=== PATIENT | female | born 1930 | race Caucasian/White ===

== ENCOUNTER 2017-12-14 14:52 | Emergency (ER) | payer BC, SELFPAY ==
[~2017-12-14] VITALS: Ht 165.1 cm; Wt 73.5 kg
[2017-12-14 15:45] LABS: Calcium, Ionized (POC) 1.05 mmol/L (1.10-1.46); Chloride (POC) 101 mmol/L (98-108); Creatinine (POC) 1.1 mg/dL (0.6-1.0); Glucose (ISTAT POC) 153 mg/dL (70-99); Hemoglobin (POC) 12.9 g/dL (12.0-16.0); Potassium (POC) 3.9 mmol/L (3.5-5.5); Sodium (POC) 137 mmol/L (135-148); Total CO2 (POC) 26 mmol/L (21-32)
[2017-12-14 16:55] LABS: BASOPHILS ABSOLUTE AUTO 0.08 K/mm3 (0.00-0.23); BASOPHILS PERCENT AUTO 1 % (0-2); EOSINOPHILS ABSOLUTE AUTO 0.13 K/mm3 (0.00-0.68); EOSINOPHILS PERCENT AUTO 1 % (0-6); Hematocrit 38.4 % (33.0-51.0); Hemoglobin 12.2 g/dL (11.5-16.0); IMMATURE GRAN ABSOLUTE AUTO 0.02 K/mm3 (0.00-0.10); IMMATURE GRAN PERCENT AUTO 0 % (0-1); LYMPHOCYTES ABSOLUTE AUTO 4.81 K/mm3 (0.84-5.20); LYMPHOCYTES PERCENT AUTO 50 % (21-46); MONOCYTES ABSOLUTE AUTO 0.68 K/mm3 (0.16-1.47); MONOCYTES PERCENT AUTO 7 % (4-13); Mean Corpuscular HGB 28.9 pg (26.0-34.0); Mean Corpuscular HGB Conc 31.8 g/dL (31.5-36.5); Mean Corpuscular Volume 91 fL (80-100); Mean Platelet Volume 9.4 fL (9.1-12.4); NEUTROPHILS ABSOLUTE AUTO 3.95 K/mm3 (1.96-9.15); NEUTROPHILS PERCENT AUTO 41 % (41-73); Platelet Count 265 K/mm3 (150-400); RDW Coefficient Variation 13.2 % (11.7-14.2); RDW Standard Deviation 44.3 fL (35.1-46.3); Red Blood Cell Count 4.22 M/mm3 (3.80-5.20); White Blood Cell Count 9.67 K/mm3 (4.00-11.30)
[2017-12-14] MEDS ORDERED: LATANOPROST2.5 ML BOTHEYES (17:06)
[2017-12-14] MEDS ORDERED: METO25ER PO (17:06)
[2017-12-14] MEDS ORDERED: LEVSOD150 PO (17:06)
[2017-12-14] MEDS ORDERED: TRIA50 PO (17:07)
[2017-12-14 17:08] LABS: Bun/Creatinine Ratio 27.6 (12.0-20.0); Calcium, Blood 8.8 mg/dL (8.5-10.1); Creatinine, Blood 1.05 mg/dL (0.40-1.00)
[2018-08-19] MEDS ORDERED: LOSA50 PO (09:34)
[2018-08-19] MEDS ORDERED: Dyazide 37.5-21 EACH PO ×2 (09:35→09:36)
[2018-08-19] MEDS ORDERED: TYLENOL EXTRA STRENG PO (09:38)
[2018-08-19] MEDS ORDERED: CALTRATE 600 +1 EACH PO (09:41)
[2018-08-19] MEDS ORDERED: FOLBIC RF TABL1 EACH PO (09:43)
[2018-08-19] MEDS ORDERED: COLCRYS0.6 MG PO (09:45)
== END 2017-12-14 18:05 | disposition home or self-care (01) ==
LOC: ER 14:52
PROVIDERS: Emergency Medicine
DX: K64.4 Residual hemorrhoidal skin tags (principal)
CPT/HCPCS: 36415; 80047; 80048; 82272; 85014; 85025; 93005; 93010; 99283

== ENCOUNTER 2018-09-05 08:27 | Day surgery (SDC) | payer BC, OTHER ==
[~2018-09-05] VITALS: Ht 167.6 cm; Wt 75.8 kg
[~2018-09-05 08:27] MED LIST: CALTRATE 600 +1 EACH PO; COLCRYS0.6 MG PO; Dyazide 37.5-21 EACH PO; FOLBIC RF TABL1 EACH PO; LATANOPROST2.5 ML BOTHEYES; LEVSOD150 PO; LOSA50 PO; METO25ER PO; TRIA50 PO; TYLENOL EXTRA STRENG PO
--- NOTE | 2018-09-05 12:04 | NUR ---
PT ADMITTED TO [facility]. AGREES WITH PLANNED SURGERY. MEDS, ALLERGIES AND HX REVIEWED. LUNG SOUNDS CLEAR.
--- NOTE | 2018-09-05 12:10 | NUR ---
REPORT GIVEN TO MARIO DELANEY RN.
[2018-09-05 12:23] LABS: BASOPHILS ABSOLUTE AUTO 0.09 K/mm3 (0.00-0.23); BASOPHILS PERCENT AUTO 1 % (0-2); EOSINOPHILS ABSOLUTE AUTO 0.11 K/mm3 (0.00-0.68); EOSINOPHILS PERCENT AUTO 1 % (0-6); Hematocrit 38.9 % (33.0-51.0); Hemoglobin 12.3 g/dL (11.5-16.0); IMMATURE GRAN ABSOLUTE AUTO 0.02 K/mm3 (0.00-0.10); IMMATURE GRAN PERCENT AUTO 0 % (0-1); LYMPHOCYTES ABSOLUTE AUTO 4.64 K/mm3 (0.84-5.20); LYMPHOCYTES PERCENT AUTO 41 % (21-46); MONOCYTES ABSOLUTE AUTO 0.89 K/mm3 (0.16-1.47); MONOCYTES PERCENT AUTO 8 % (4-13); Mean Corpuscular HGB 29.6 pg (26.0-34.0); Mean Corpuscular HGB Conc 31.6 g/dL (31.5-36.5); Mean Corpuscular Volume 94 fL (80-100); NEUTROPHILS ABSOLUTE AUTO 5.55 K/mm3 (1.96-9.15); NEUTROPHILS PERCENT AUTO 49 % (41-73); Platelet Count 253 K/mm3 (150-400); RDW Coefficient Variation 13.9 % (11.7-14.2); RDW Standard Deviation 47.4 fL (35.1-46.3); Red Blood Cell Count 4.15 M/mm3 (3.80-5.20)
[2018-09-05 12:31] LABS: Albumin/Globulin Ratio 0.9 (0.8-1.8); Bilirubin, Total 0.6 mg/dL (0.1-1.0); Bun/Creatinine Ratio 22.1 (12.0-20.0); Calcium, Blood 6.9 mg/dL (8.5-10.1); Creatinine, Blood 0.95 mg/dL (0.40-1.00); Globulin, Blood 4.3 g/dL (2.2-4.0); Potassium, Blood 3.9 mmol/L (3.5-5.5); Total Protein, Blood 8.3 g/dL (6.4-8.2)
== END 2018-09-05 22:37 | disposition home or self-care (01) ==
LOC: NM 08:27 → ORSCMMR 08:27 → NM 09:30 → ORSCMMR 22:37
PROVIDERS: Anesthesiology; Surgery
PROC: 0HBT0ZZ Excision of Right Breast, Open Approach (ICD-10-PCS; principal; 2018-09-05 11:00)
PROC: 07B50ZX Excision of Right Axillary Lymphatic, Open Approach, Diagnostic (ICD-10-PCS; principal; 2018-09-05 11:00)
DX: C50.011 Malignant neoplasm of nipple and areola, right female breast (principal); D36.0 Benign neoplasm of lymph nodes; I10 Essential (primary) hypertension; E11.9 Type 2 diabetes mellitus without complications; E03.9 Hypothyroidism, unspecified; Z79.899 Other long term (current) drug therapy
CPT/HCPCS: 38792; 80053; 82947; 85025; 88307; 88342; A9520; J0690; J2370; J2405; J3010; J7120; Q9968

== ENCOUNTER 2019-02-15 11:26 | Emergency (ER) | payer BC, OTHER ==
[~2019-02-15] VITALS: Ht 167.6 cm; Wt 54.4 kg
[2019-02-15] MEDS ORDERED: Voltaren100 GM TOP (12:14)
[2019-02-15] MEDS ORDERED: Ultram50 MG PO (12:14)
== END 2019-02-15 12:22 | disposition home or self-care (01) ==
LOC: ER 11:26
DX: M16.0 Bilateral primary osteoarthritis of hip (principal); D21.9 Benign neoplasm of connective and other soft tissue, unspecified; Z79.899 Other long term (current) drug therapy; I10 Essential (primary) hypertension
CPT/HCPCS: 73523; 99283-25